=== PATIENT | male | born 2005 | race African-American/Black ===

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

== ENCOUNTER 2024-12-12 11:45 | Emergency (ER) | payer OTHER, MEDICAID ==
[~2024-12-12] VITALS: Ht 172.7 cm; Wt 74.0 kg
[2024-12-12 11:48] VITALS: O2SAT 100
[2024-12-12 12:13] LABS: BASOPHILS % 0.6 % (0.0-2.0); EOSINOPHILS % 1.4 % (0.0-5.0); HEMATOCRIT. 43.4 % (42.0-52.0); HEMOGLOBIN. 14.7 g/dL (14.0-18.0); LYMPHOCYTES % 24.3 % (20.0-50.0); MEAN CORPUSCULAR HEMOGLOBIN 27.6 pg (28.0-32.0); MEAN CORPUSCULAR HGB CONC 33.8 g/dL (31.0-37.0); MEAN CORPUSCULAR VOLUME 81.5 fL (80.0-94.0); MONOCYTES % 6.7 % (2.0-8.0); PLATELET 233 x1000/uL (130-400); RED BLOOD CELL COUNT 5.33 mill/uL (4.7-6.1); RED CELL DISTRIBUTION WIDTH 13.8 % (11.6-14.6)
[2024-12-12 12:20] LABS: CHLORIDE 105 mEq/L (98-107); POTASSIUM 4.3 mEq/L (3.5-5.1); SODIUM 140 mEq/L (136-145)
[2024-12-12 12:21] LABS: CALCIUM 9.2 mg/dL (8.7-10.4); CARBON DIOXIDE 29 mEq/L (21-32)
[2024-12-12 12:26] LABS: CREATININE 1.4 mg/dL (0.6-1.3); GLUCOSE 113 mg/dL (70-105); UREA NITROGEN BLOOD 15 mg/dL (9-23)
[2024-12-12 12:28] LABS: PHOSPHORUS 3.5 mg/dL (2.5-4.9)
[2024-12-12 12:31] LABS: THYROID STIMULATING HORMONE 1.17 uIU/mL (0.55-4.78)
[2024-12-12 13:08] VITALS: BP 119/71; PULSE 98; RESP 22; TEMP 36.2; O2SAT 99
== END 2024-12-12 13:09 | disposition home or self-care (01) ==
LOC: ER 11:45
DX: I47.19 Other supraventricular tachycardia (principal); Z88.0 Allergy status to penicillin
CPT/HCPCS: 36415; 80048; 83735; 84100; 84439; 84443; 85025; 93005; 99284